=== PATIENT | female | born 1980 | race Caucasian/White ===

== ENCOUNTER 2016-06-10 18:15 | Inpatient (IN) ==
--- NOTE | 2016-06-10 18:28 | Emergency Department Note ---
Disposition Clinical Impression: Abdominal pain, Abnormal urinalysis, Pelvic mass in female Disposition: Still a Patient Condition: Fair Referrals: Gentry Sandoval MD [Primary Care Provider] - Forms: Work/School Release, ED Satisfaction Letter General Adult HPI - General Chief complaint: ED Abdominal Pain Stated complaint: abd, back pain Time Seen by Provider: 06/10/16 18:27 Source: patient Limitations: no limitations - History of Present Illness HPI Narrative: 34-year-old female reports to the emergency department complaining of lower abdominal pain which has been present since Sunday and getting progressively worse. The patient denies vaginal discharge bleeding or urinary symptoms. There is no history of trauma. No back pain. No chest pain or shortness of breath. There is no history of cough runny nose or pain or sore throat. The patient has never had abdominal surgery. She has no history of kidney stones. There is no history of fever or rash. The patient has had some emesis without diarrhea. No blood in the emesis. There is no history of fever. She recently traveled from [place]. She states the pain started when she was there, she was able to drive home, now the pain is getting worse. Onset (ago): day(s) Pain Scale: 10 - Related Data Allergies Allergy/AdvReac Type Severity Reaction Status Date / Time cephalexin [From Keflex] Allergy Nausea Verified 06/10/16 18:20 All systems ED: reviewed and negative except as stated. Past Medical History - Past Medical History Medical history: Reports: no medical history Psychiatric history: Reports: anxiety, depression, PTSD - Social History Smoking Status: Current every day smoker Alcohol use: Reports: none Drug use: Reports: none Physical Exam - General Limitations: no limitations General appearance: alert, in no apparent distress - Head Head exam: atraumatic, normocephalic, normal inspection - Eye Eye exam: Present: normal appearance, PERRL, EOMI - ENT ENT exam: normal exam, normal oropharynx, mucous membranes moist, TM's normal bilaterally, normal external ear exam - Neck Neck exam: Present: normal inspection, full ROM, trachea midline - Chest Chest inspection: Present: symmetric chest wall rise. Absent: tenderness - Respiratory Respiratory exam: Present: normal lung sounds bilaterally. Absent: respiratory distress - Cardiovascular Cardiovascular exam: Present: regular rate, normal rhythm, normal heart sounds - Abdominal Exam Abdominal exam: Present: soft, tenderness, normal bowel sounds. Absent: distention, guarding, rebound, rigidity, trauma Abdominal tenderness: Present: RLQ, LLQ, moderate - Extremities Exam Extremities exam: Present: normal inspection, full ROM, normal capillary refill. Absent: tenderness, pedal edema, joint swelling, calf tenderness - Expanded Lower Extremity Exam Lower leg exam: Absent: Homans' sign Neurovascular/Tendon exam: Absent: motor deficit, sensory deficit, tendon deficit - Back Exam Back exam: Present: normal inspection, full ROM. Absent: tenderness, CVA tenderness (R), CVA tenderness (L), vertebral tenderness - Neurological Exam Neurological exam: Present: alert, oriented X3, CN II-XII intact. Absent: motor sensory deficit - Psychiatric Psychiatric exam: Present: normal affect, normal mood - Skin Skin exam: Present: warm, dry, intact, normal color. Absent: rash, cyanosis, diaphoresis, erythema, pallor, mottled Course Vital Signs Temperature 97.6 F 06/10/16 18:17 Pulse Rate 88 06/10/16 18:17 Respiratory Rate 20 06/10/16 18:17 Blood Pressure 143/105 06/10/16 18:17 O2 Sat by Pulse Oximetry 99 06/10/16 18:17 Temperature 97.6 F 06/10/16 18:17 Pulse Rate 88 06/10/16 18:17 Respiratory Rate 20 06/10/16 18:17 Blood Pressure 143/105 06/10/16 18:17 O2 Sat by Pulse Oximetry 99 06/10/16 18:17 Oxygen Delivery Oxygen Delivery Room Air Medical Decision Making - [facility] Narrative Medical decision making narrative: The patient appears to have a complex pelvic mass which may be related to the appendix. Based on her significant CT findings in association with progressive abdominal pain I have consulted Dr. Mirza neon tube bender u.s. commissioner who is coming to the emergency department to evaluate the patient. The patient is currently stable pending obstetric evaluation and disposition. I suspect she will require hospitalization secondary to progressive and severe pain, with possible surgical management. It is shift change, I have checked the patient out to Dr. Perez who ordered name with Dr. Mirza and assist wth disposition. - Lab Data Lab results reviewed: Yes I reviewed the patient's lab results. Result diagrams: 06/10/16 18:44 06/10/16 18:44 Lab Results 06/10/16 06/10/16 06/10/16 Range/Units 18:44 18:44 18:44 WBC 14.2 H (4.3-11.1) K/mcL RBC 4.35 (3.82-4.97) M/mcL Hgb 13.2 (11.5-15.4) g/dL Hct 38.9 (35.3-44.9) % MCV 89.4 (83.0-100.0) fL MCH 30.3 (28.0-33.3) pg MCHC 33.9 (31.6-35.5) g/dL RDW 12.4 (11.5-14.5) % Plt Count 376 (140-400) K/mcL MPV 9.5 (9.4-12.4) fL Immature Gran % 0.5 (0-4) % Seg Neutrophils % 67.8 % Lymphocytes % 21.0 % Monocytes % 8.5 % Eosinophils % 1.7 % Basophils % 0.5 % Neutrophils # 9.6 H (1.6-8.9) K/mcL Lymphocytes # 3.0 (0.6-4.6) K/mcL Monocytes # 1.2 (0.0-1.3) K/mcL Eosinophils # 0.2 (0.0-0.6) K/mcL Basophils # 0.1 (0.0-0.2) K/mcL Sodium 138 (136-145) mEq/L Potassium 3.8 (3.5-4.5) mEq/L Chloride 107 (98-109) mEq/L Carbon Dioxide 20 (19-29) mEq/L BUN 15 (7-20) mg/dL Creatinine 0.81 (0.57-1.11) mg/dL Est GFR ( Amer) > 60 (> 60) Est GFR (Non-Af Amer) > 60 (> 60) BUN/Creatinine Ratio 19 (6-26) Glucose 131 H (70-99) mg/dL Calculated Osmolality 289 (280-300) Lactic Acid 1.4 (0.5-2.2) mmol/L Calcium 9.1 (8.6-10.8) mg/dL Total Bilirubin 0.4 (0.2-1.2) mg/dL Direct Bilirubin 0.1 (0.0-0.5) mg/dL Indirect Bilirubin 0.3 (0.0-1.2) mg/dL AST 14 (5-34) Units/L ALT 17 (0-55) Units/L Alkaline Phosphatase 35 L (38-126) Units/L C-Reactive Protein (Less than 5) mg/L Serum Total Protein 7.2 (6.0-8.3) g/dL Albumin 3.7 (3.5-5.0) g/dL Globulin 3.5 (2.4-3.5) g/dL Albumin/Globulin Ratio 1.1 (1.1-2.2) Lipase 21 (8-78) Units/L Serum , Qual (Negative) Urine Color (Yellow) Urine Clarity (Clear) Urine pH (5.0-8.0) pH Units Ur Specific [place] (1.010-1.025) Urine Protein (Neg-Trace) mg/dL Urine Glucose (UA) (Normal) mg/dL Urine Ketones (Negative) mg/dL Urine Blood (Negative) Urine Nitrite (Negative) Urine Bilirubin (Negative) Urine Urobilinogen (Normal) mg/dL Ur Leukocyte Esterase (Negative) Urine Microscopic RBC (0-3) per hpf Urine Microscopic WBC (0-3) per hpf Ur Squamous Epith Cells (None-Few) per lpf Uric Acid Crystals Urine Bacteria (None-Few) per hpf Hyaline Casts (None-Few) per lpf Urine Yeast (None Seen) per hpf Ur Culture Indicated? (NO) Urine Opiates Screen (Andsvg=598) ng/mL Ur Barbiturates Screen (Ekdmjw=555) ng/mL Ur Phencyclidine Scrn (Cutoff=25) ng/mL Ur Amphetamines Screen (Ntxwgu=3089) ng/mL U Benzodiazepines Scrn (Ifrmrc=502) ng/mL Urine Cocaine Screen (Cutoff= 300) ng/mL U Marijuana (THC) Screen (Cutoff = 50) ng/mL 06/10/16 06/10/16 06/10/16 Range/Units 18:44 18:44 19:00 WBC (4.3-11.1) K/mcL RBC (3.82-4.97) M/mcL Hgb (11.5-15.4) g/dL Hct (35.3-44.9) % MCV (83.0-100.0) fL MCH (28.0-33.3) pg MCHC (31.6-35.5) g/dL RDW (11.5-14.5) % Plt Count (140-400) K/mcL MPV (9.4-12.4) fL Immature Gran % (0-4) % Seg Neutrophils % % Lymphocytes % % Monocytes % % Eosinophils % % Basophils % % Neutrophils # (1.6-8.9) K/mcL Lymphocytes # (0.6-4.6) K/mcL Monocytes # (0.0-1.3) K/mcL Eosinophils # (0.0-0.6) K/mcL Basophils # (0.0-0.2) K/mcL Sodium (136-145) mEq/L Potassium (3.5-4.5) mEq/L Chloride (98-109) mEq/L Carbon Dioxide (19-29) mEq/L BUN (7-20) mg/dL Creatinine (0.57-1.11) mg/dL Est GFR ( Amer) (> 60) Est GFR (Non-Af Amer) (> 60) BUN/Creatinine Ratio (6-26) Glucose (70-99) mg/dL Calculated Osmolality (280-300) Lactic Acid (0.5-2.2) mmol/L Calcium (8.6-10.8) mg/dL Total Bilirubin (0.2-1.2) mg/dL Direct Bilirubin (0.0-0.5) mg/dL Indirect Bilirubin (0.0-1.2) mg/dL AST (5-34) Units/L ALT (0-55) Units/L Alkaline Phosphatase (38-126) Units/L C-Reactive Protein 5 H (Less than 5) mg/L Serum Total Protein (6.0-8.3) g/dL Albumin (3.5-5.0) g/dL Globulin (2.4-3.5) g/dL Albumin/Globulin Ratio (1.1-2.2) Lipase (8-78) Units/L Serum , Qual Negative (Negative) Urine Color Yellow (Yellow) Urine Clarity Clear (Clear) Urine pH 6.0 (5.0-8.0) pH Units Ur Specific [place] 1.025 (1.010-1.025) Urine Protein Trace (Neg-Trace) mg/dL Urine Glucose (UA) Normal (Normal) mg/dL Urine Ketones Negative (Negative) mg/dL Urine Blood Moderate H (Negative) Urine Nitrite Negative (Negative) Urine Bilirubin Negative (Negative) Urine Urobilinogen Normal (Normal) mg/dL Ur Leukocyte Esterase Negative (Negative) Urine Microscopic RBC 5-15 H (0-3) per hpf Urine Microscopic WBC 0-3 (0-3) per hpf Ur Squamous Epith Cells Moderate H (None-Few) per lpf Uric Acid Crystals Present Urine Bacteria Few (None-Few) per hpf Hyaline Casts None Seen (None-Few) per lpf Urine Yeast Few H (None Seen) per hpf Ur Culture Indicated? NO (NO) Urine Opiates Screen (Wskvcz=511) ng/mL Ur Barbiturates Screen (Veghfn=951) ng/mL Ur Phencyclidine Scrn (Cutoff=25) ng/mL Ur Amphetamines Screen (Fmjoyg=0705) ng/mL U Benzodiazepines Scrn (Vwojwr=634) ng/mL Urine Cocaine Screen (Cutoff= 300) ng/mL U Marijuana (THC) Screen (Cutoff = 50) ng/mL 06/10/16 Range/Units 19:00 WBC (4.3-11.1) K/mcL RBC (3.82-4.97) M/mcL Hgb (11.5-15.4) g/dL Hct (35.3-44.9) % MCV (83.0-100.0) fL MCH (28.0-33.3) pg MCHC (31.6-35.5) g/dL RDW (11.5-14.5) % Plt Count (140-400) K/mcL MPV (9.4-12.4) fL Immature Gran % (0-4) % Seg Neutrophils % % Lymphocytes % % Monocytes % % Eosinophils % % Basophils % % Neutrophils # (1.6-8.9) K/mcL Lymphocytes # (0.6-4.6) K/mcL Monocytes # (0.0-1.3) K/mcL Eosinophils # (0.0-0.6) K/mcL Basophils # (0.0-0.2) K/mcL Sodium (136-145) mEq/L Potassium (3.5-4.5) mEq/L Chloride (98-109) mEq/L Carbon Dioxide (19-29) mEq/L BUN (7-20) mg/dL Creatinine (0.57-1.11) mg/dL Est GFR ( Amer) (> 60) Est GFR (Non-Af Amer) (> 60) BUN/Creatinine Ratio (6-26) Glucose (70-99) mg/dL Calculated Osmolality (280-300) Lactic Acid (0.5-2.2) mmol/L Calcium (8.6-10.8) mg/dL Total Bilirubin (0.2-1.2) mg/dL Direct Bilirubin (0.0-0.5) mg/dL Indirect Bilirubin (0.0-1.2) mg/dL AST (5-34) Units/L ALT (0-55) Units/L Alkaline Phosphatase (38-126) Units/L C-Reactive Protein (Less than 5) mg/L Serum Total Protein (6.0-8.3) g/dL Albumin (3.5-5.0) g/dL Globulin (2.4-3.5) g/dL Albumin/Globulin Ratio (1.1-2.2) Lipase (8-78) Units/L Serum , Qual (Negative) Urine Color (Yellow) Urine Clarity (Clear) Urine pH (5.0-8.0) pH Units Ur Specific [place] (1.010-1.025) Urine Protein (Neg-Trace) mg/dL Urine Glucose (UA) (Normal) mg/dL Urine Ketones (Negative) mg/dL Urine Blood (Negative) Urine Nitrite (Negative) Urine Bilirubin (Negative) Urine Urobilinogen (Normal) mg/dL Ur Leukocyte Esterase (Negative) Urine Microscopic RBC (0-3) per hpf Urine Microscopic WBC (0-3) per hpf Ur Squamous Epith Cells (None-Few) per lpf Uric Acid Crystals Urine Bacteria (None-Few) per hpf Hyaline Casts (None-Few) per lpf Urine Yeast (None Seen) per hpf Ur Culture Indicated? (NO) Urine Opiates Screen Negative (Tkmdty=880) ng/mL Ur Barbiturates Screen Negative (Jnxnrj=591) ng/mL Ur Phencyclidine Scrn Negative (Cutoff=25) ng/mL Ur Amphetamines Screen Negative (Iblycp=5045) ng/mL U Benzodiazepines Scrn Negative (Lclmak=792) ng/mL Urine Cocaine Screen Negative (Cutoff= 300) ng/mL U Marijuana (THC) Screen Negative (Cutoff = 50) ng/mL - Radiology Data Radiology results reviewed: Yes I reviewed the patient's radiology results.
[2016-06-10] MEDS ORDERED: 0.9 % Sodium Chloride 1,000 ML IVC ONE (18:36)
[2016-06-10 18:51] LABS: Basophils # 0.1 K/mcL (0.0-0.2); Basophils % 0.5 %; Eosinophils # 0.2 K/mcL (0.0-0.6); Eosinophils % 1.7 %; Hematocrit 38.9 % (35.3-44.9); Hemoglobin 13.2 g/dL (11.5-15.4); Immature Granulocytes % 0.5 % (0-4); Mean Corpuscular HGB Conc 33.9 g/dL (31.6-35.5); Mean Corpuscular Hemoglobin 30.3 pg (28.0-33.3); Mean Corpuscular Volume 89.4 fL (83.0-100.0); Mean Platelet Volume 9.5 fL (9.4-12.4); Monocytes # 1.2 K/mcL (0.0-1.3); Monocytes % 8.5 %; Neutrophils # 9.6 K/mcL (1.6-8.9); Platelet Count 376 K/mcL (140-400); Red Blood Count 4.35 M/mcL (3.82-4.97); Red Cell Distribution Width 12.4 % (11.5-14.5); Segmented Neutrophils % 67.8 %
[2016-06-10 19:06] LABS: Bilirubin,Urine Negative (Negative); Blood,Urine Moderate (Negative); Clarity,Urine Clear (Clear); Color,Urine Yellow (Yellow); Glucose,Urine (UA) Normal (Normal); Ketones,Urine Negative (Negative); Leukocyte Esterase,Urine Negative (Negative); Nitrite,Urine Negative (Negative); Protein,Urine Trace mg/dL (Neg-Trace); Specific Gravity,Urine 1.025 (1.010-1.025); Urobilinogen,Urine Normal (Normal)
[2016-06-10 19:08] LABS: Alanine Aminotransferase 17 Units/L (0-55); Albumin 3.7 g/dL (3.5-5.0); Albumin/Globulin Ratio 1.1 (1.1-2.2); Alkaline Phosphatase 35 Units/L (38-126); Aspartate Amino Transferase 14 Units/L (5-34); BUN/Creatinine Ratio 19 (6-26); Bilirubin,Direct 0.1 mg/dL (0.0-0.5); Bilirubin,Indirect 0.3 mg/dL (0.0-1.2); Bilirubin,Total 0.4 mg/dL (0.2-1.2); Blood Urea Nitrogen 15 mg/dL (7-20); Calcium 9.1 mg/dL (8.6-10.8); Carbon Dioxide 20 mEq/L (19-29); Chloride 107 mEq/L (98-109); Globulin 3.5 g/dL (2.4-3.5); Glucose 131 mg/dL (70-99); Lipase 21 Units/L (8-78); Osmolality,Calculated 289 (280-300); Potassium 3.8 mEq/L (3.5-4.5); Sodium 138 mEq/L (136-145); Total Protein 7.2 g/dL (6.0-8.3); eGFR For African Americans > 60 (> 60); eGFR For Non-African Americans > 60 (> 60)
[2016-06-10 19:12] LABS: Amphetamine Screen,Urine Negative ng/mL (Cutoff=1000); Barbiturate Screen,Urine Negative ng/mL (Cutoff=200); Benzodiazepines Screen,Urine Negative ng/mL (Cutoff=200); Cannabinoid Screen,Urine Negative ng/mL (Cutoff = 50); Cocaine Screen,Urine Negative ng/mL (Cutoff= 300); Opiate Screen,Urine Negative ng/mL (Cutoff=300); Phencyclidine Screen,Urine Negative ng/mL (Cutoff=25)
[2016-06-10 19:21] LABS: Squamous Epithelial Cell,Urine Moderate per lpf (None-Few); Uric Acid Crystals,Urine Present; WBC,Urine 0-3 per hpf (0-3)
[2016-06-10 19:23] LABS: Bacteria,Urine Few per hpf (None-Few); Hyaline Casts,Urine None Seen per lpf (None-Few); Yeast,Urine Few per hpf (None Seen)
[2016-06-10] MEDS ORDERED: *HR* HYDROmorphone (PF) 1 MG/ML SYRINGE IVP ONE (20:19)
[2016-06-10] MEDS ORDERED: Ondansetron 4 MG/2 ML VIAL IVP ONE (20:20)
[2016-06-10] MEDS ORDERED: Lidocaine -MPF 2% 2 ML VIAL ONE ×2 (23:48→23:49)
[2016-06-10] MEDS ORDERED: *HR* Succinylcholine 200 MG/10 ML VIAL IVP ONE (23:48)
[2016-06-10] MEDS ORDERED: *HR* FentaNYL (PF) 100 MCG/2 ML VIAL ONE (23:48)
[2016-06-10] MEDS ORDERED: *HR* Midazolam HCl 2 MG/2 ML VIAL ONE (23:48)
[2016-06-10] MEDS ORDERED: *HR* Propofol 200 MG/20 ML VIAL IVP ONE (23:48)
[2016-06-10] MEDS ORDERED: Lidocaine -MPF 4% 5 ML AMPUL ONE (23:48)
[2016-06-10] MEDS ORDERED: *HR* Rocuronium Bromide 50 MG/5 ML VIAL ONE (23:48)
[2016-06-10] MEDS ORDERED: Metoclopramide 10 MG/2 ML VIAL ONE (23:57)
[2016-06-11] MEDS ORDERED: Ringers Solution, Lactated 1,000 ML ONE (00:15)
[2016-06-11] MEDS ORDERED: Albuterol 2.5 MG/3 ML NEBULIZER ONE (00:19)
[2016-06-11] MEDS: Ringers Solution, Lactated 1,000 ML IVC SCH ×4 (00:20→15:48)
--- NOTE | 2016-06-11 01:00 | Anesthesia Evaluation PreOp ---
Date of Encounter: 06/11/16 Time of Encounter: 00:58 - Past History Planned Operation: Expl Lap/L-oophorectomy/removal R-adnexal mass Cardiac History: Denies any Significant Hx Pulmonary History: Smoker SAS ANALYST History: Other (Anxiety/Depresson/PTSD maintained on Xanax & Lexapro) Other Medical History: Denies Any Significant HX Anesthesia History: No Prior Anesthetic Complications, Past Anesthesia : No Test: Negative Alcohol Use: none Drug use: none Medications and Allergies Alprazolam [Xanax 0.5 MG Tablet] 0.5 mg PO BID 06/10/16 [History] Escitalopram [Lexapro] 20 mg PO DAILY 06/10/16 [History] Norethindrone-E.estradiol-Iron [Microgestin Fe 1-20 Tablet] 1 each PO DAILY [History] Allergies cephalexin [From Keflex] Allergy (Verified 06/10/16 18:20) Nausea - Meds/Allergy Pre-op Review Medications Reviewed: Yes Allergies Reviewed: Yes Beta Blockers on Current Med List: No Anesthesia Results - Labs 06/10/16 18:44 06/10/16 18:44 Laboratory Results Impressions Abdomen/Pelvis CT 06/10/16 18:35 IMPRESSION: 1. 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 This measures 12.7 x 14.7 x 14.4 cm. 2. Abnormal tubular cystic mass containing coarse calcifications along the right pelvic side wall. This could represent a portion of the above-mentioned teratoma however it does appear separate and may represent a right-sided teratoma or hydrosalpinx. This abuts the distal tip of the appendix and could also represent a mucocele arising from the distal tip of the appendix. This abnormality measures 6.5 x 2.8 cm. RECOMMENDATIONS: Surgical consultation is recommended. D/ / 06/10/2016 19:47:28 Jayjay Paulino MD / jamie Interpreting Provider: Jayjay Paulino MD Chest X-Ray 06/10/16 18:35 IMPRESSION: Negative chest. D/ / Buddy Carranza MD / Buddy Carranza MD Interpreting Provider: Buddy Carranza MD Anesthesia Exam Vital Signs/O2 Sat/Glucose, Most Current Temp Pulse Resp BP Pulse Ox 06/10/16 23:38 16 06/10/16 23:35 97.6 F 62 16 153/82 98 06/10/16 23:10 15 146/98 06/10/16 22:50 72 15 146/98 96 06/10/16 22:20 73 16 124/74 97 06/10/16 21:50 73 16 123/80 98 Height: 5'3" Weight: 225# NPO (# of Hours): >12hrs - HEENT Pupil (Motor): Pupils equal, EOMI Mallampati: III Teeth: Normal Oral Opening: Greater than 3 - SAS ANALYST LOC: Oriented SAS ANALYST Motor: Normal RUE, Normal LUE, Normal RLE, Normal LLE, Normal Face SAS ANALYST Sensory: Normal: RUE, LUE, RLE, LLE, Face - Cardiac Rhythm: Regular Murmur: None - Pulmonary Breath Sounds: bilateral Clear Respiratory Effort: Symmetrical Anesthesia Assess/Plan ASA Score: 3 (MO, Smoker, Anxiety/PTSD) Modified [place] Scale for Level of Consciousness: Cooperative, oriented, and tranquil Anesthetic Plan: General Monitoring Plan: Standard Monitors Recovery Plan: PACU Anes Supervising Prov Stmt: PT seen/evaluated, R&B Discussed, questions answered and consent obtained. Ynes Spaulding MD
--- NOTE | 2016-06-11 01:06 | OB/GYN History & Physical ---
Date of Encounter: 06/11/16 Time of Encounter: 01:03 Assessment and Plan (1) Abdominal pain Current visit: Yes Status: Acute Qualifiers: Abdominal location: lower abdomen, unspecified Qualified Code(s): R10.30 - Lower abdominal pain, unspecified (2) Pelvic mass in female Current visit: Yes Status: Acute Patient presents to the ER with pain and left lower quadrant is worsening this evening. CAT scan reveals 17 cm dermoid cyst and left probable hydrosalpinx on the right. He is quite debilitating pain and desires definitive surgical management. She is whereby operative risks and signed appropriate consent for exploratory laparotomy removal of left ovarian dermoid cyst and right pelvic mass. All questions were answered and consent is obtained. History of Present Illness Chief complaint: Pelvic pain HPI: Ms. Zafar is a 36 year old female 0 with last menstrual period which was normal earlier this month. She had onset of pain 3 days prior to arrival is dull aching pain until this evening escalated and was doubly over an excruciating. She did have associated chills as well as nausea. She has no history of similar pain. she has no bowel or bladder complaints. She denies abnormal vaginal discharge. She has no history of gynecologic problems no history of sexually transmitted diseases. Arrival showed a slightly elevated white count of 14 she appeared to be in quite severe pain and CAT scan showed 12.7 x 14.7 x 14.4 dermoid cyst in the left adnexa. In the right adnexa was 6.5 x 2.8 cm tubular structure. I did discuss this with the radiologist who read the CAT scan he believed it most likely to be a portion of the dermoid versus hydrosalpinx. After discussing with patient options she desired to proceed with laparotomy. Past Med Surg Social Fam HX - Past Medical History Source: patient Medical history: no medical history Psychiatric history: anxiety, depression, PTSD - Social History Smoking Status: Current every day smoker Alcohol use: none Drug use: none Obstetrical History - Pregnancies : 0 Medications and Allergies Alprazolam [Xanax 0.5 MG Tablet] 0.5 mg PO BID 06/10/16 [History] Escitalopram [Lexapro] 20 mg PO DAILY 06/10/16 [History] Norethindrone-E.estradiol-Iron [Microgestin Fe 1-20 Tablet] 1 each PO DAILY [History] Allergies cephalexin [From Keflex] Allergy (Verified 06/10/16 18:20) Nausea Exam - Vital Signs Vital signs: Initial Vital Signs Temp Pulse Resp BP Pulse Ox 97.6 F 88 20 143/105 99 06/10/16 18:17 06/10/16 18:17 06/10/16 18:17 06/10/16 18:17 06/10/16 18:17 - Constitutional Constitutional: well developed, moderate distress - HEENT HEENT: EOMI, PERRL - Neck Neck exam: full ROM - Lungs Respiratory exam: CTAB - Cardiovascular Cardiovascular exam: RRR - Abdomen Abdomen: Present: guarding noted Abdomen detail: right lower quadrant: tenderness, left lower quadrant: mass, tenderness - Extremities Extremities exam: full ROM - Adnexa Adnexa: left: mass Results Result Diagrams: 06/10/16 18:44 06/10/16 18:44 Abnormal lab results WBC 14.2 K/mcL (4.3-11.1) H 06/10/16 18:44 Neutrophils # 9.6 K/mcL (1.6-8.9) H 06/10/16 18:44 Glucose 131 mg/dL (70-99) H 06/10/16 18:44 Alkaline Phosphatase 35 Units/L (38-126) L 06/10/16 18:44 C-Reactive Protein 5 mg/L (Less than 5) H 06/10/16 18:44 Urine Blood Moderate (Negative) H 06/10/16 19:00 Urine Microscopic RBC 5-15 per hpf (0-3) H 06/10/16 19:00 Ur Squamous Epith Cells Moderate per lpf (None-Few) H 06/10/16 19:00 Urine Yeast Few per hpf (None Seen) H 06/10/16 19:00 All other labs normal.
[2016-06-11] MEDS ORDERED: Albuterol 2.5 MG/3 ML NEBULIZER IH ONE (01:09)
[2016-06-11] MEDS ORDERED: Metoclopramide 10 MG/2 ML VIAL ONE (01:15)
[2016-06-11] MEDS ORDERED: Famotidine 20 MG/2 ML VIAL ONE (01:16)
[2016-06-11] MEDS ORDERED: Acetaminophen IV 1,000 MG/100 ML INFUS..BTL ONE (01:16)
[2016-06-11] MEDS ORDERED: Famotidine 20 MG/2 ML VIAL IVP ONE (01:28)
[2016-06-11] MEDS ORDERED: Metoclopramide 10 MG/2 ML VIAL IVP ONE (01:28)
[2016-06-11] MEDS ORDERED: Clindamycin 900 MG/50 ML 900 MG/50 ML IV.SOLN IVPB ONE (01:48)
[2016-06-11] MEDS ORDERED: *HR* Magnesium Sulfate 1 GM/2 ML VIAL ONE (02:31)
[2016-06-11] MEDS ORDERED: Ondansetron 4 MG/2 ML VIAL ONE (02:34)
[2016-06-11] MEDS ORDERED: Dexamethasone 4 MG/ML VIAL ONE (02:34)
[2016-06-11] MEDS ORDERED: Neostigmine Methylsulfate 3 MG/3 ML SYRINGE ONE (03:28)
[2016-06-11] MEDS ORDERED: *HR* HYDROmorphone 2 MG/ML SYRINGE ONE (03:37)
--- NOTE | 2016-06-11 03:37 | Operative Note ---
Date of procedure: 06/11/16 Pre-op diagnosis: right adenexal mass Post-op diagnosis: other (appendiceal torsion) Procedure: open appendectomy Complications: none immediate Anesthesia: YAA Surgeon: Mariella Lees Rounding And Backing Machine Operator: Mathew Warren Estimated blood loss (cc): 2 Specimen: appendix Condition: stable Disposition: PACU Procedure in Detail: I was called as an intraoperative consult from Dr. Warren. He had taken the patient to the operating room for a large dermoid cyst and right adnexal mass. He states that once in the abdomen what was thought to be a right adnexal mass was really a ischemic torsed appendix. He detorsed the appendix and called me into the operating suite. The appendix was severely dilated but no longer ischemic. A right angle was used to dissect in the nasal appendix isolating out the appendiceal artery which was ligated with an 0 silk stitch. The appendix was transected at the base of the cecum with a linear JUDY-75 stapler using a blue load. The appendix to the back table. The staple line was evaluated and was intact. The appendiceal artery stump was then grasped with a right angle and a second 0 silk ligating stitch placed. There was no bleeding either from the appendiceal artery or the staple line. The case was turned back over to Dr. Warren
--- NOTE | 2016-06-11 04:40 | OB/GYN Procedure Note ---
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 Lees Surgeon: Mathew Warren (c/s Nabeel) Anesthesia Type: General Estimated blood loss (cc): 30 Fluids: crystalloid Procedure Complications: None Specimens collected: left ovary and partial tube, appendix Disposition: PACU Findings: Enlarged smooth walled left ovarian cyst with straw colored thin fluid , Torsed enlarged appendix with discoloration c/w lack of oxygenation. Narrative: Patient is a 36-year-old female presented to the emergency room this afternoon complaining of worsening abdominal pain that was not doubling her over. She had had some recent onset of nausea and had felt hot at times been no documented fever and no emesis. She had a minimally elevated white count and no fever. CAT scan was performed showing 17 cm dermoid cyst on left and 2.5 x 6 cm cystic structure on the right that appeared to be separate from the appendix. Discussed with patient options decision was made to proceed with exploratory laparotomy with left oophrectomy and removal of right adnexal mass. Patient was aware operative risks and signed appropriate consent. Description of procedure: Patient was taken operating room where general anesthesia was administered. She was prepped and draped in usual sterile fashion in supine position bladder was drained of clear urine with Coronel catheter. Scalpel was used to make pain still skin incision was sharply taken down to the rectus fascia. Fascia was incised in midline and fascial incision was extended bilaterally. Rectus muscles were divided and peritoneum was entered sharply. There is no evidence of ascites and the left ovary was noted to be quite smooth wall and very much enlarged. It was able to find the infundibulopelvic ligament this was crossclamped with the LigaSure and then cauterized and transected. It was a small omental adhesion to the enlarged ovary and this too was taken to. This point attempt was made to remove the ovary from the pelvis removing the ovary did have some leaking of straw-colored fluid this was quickly suctioned and the ovary was removed from the field and once removed irrigation was performed and hemostasis was assured. This point we were able to palpate the uterus and normal right ovary and right fallopian tube. There was a large smooth-walled structure was somewhat blue inflamed in appearance. This was found to be the appendix. At this point Dr. Lees was consulted to quickly responded and performed appendectomy. Again irrigation was performed and hemostasis was assured. Fascia was closed with oh loop PDS from each side. Irrigation was performed the deep subcutaneous tissue was reapproximated with 3-0 Vicryl. Skin edges were then reapproximated with maribell. All sponge and instruments counts correct patient taken recovery room good condition.
--- NOTE | 2016-06-11 05:01 | Anesthesia Evaluation Post Op ---
Date of Encounter: 06/11/16 Time of Encounter: 04:59 - Vital Signs Vital Signs: Vital Signs/O2 Sat/Glucose, Most Current Temp Pulse Resp BP Pulse Ox 06/11/16 04:45 99.1 F 89 16 127/82 99 06/11/16 04:35 80 16 126/79 97 06/11/16 04:25 79 16 129/82 96 06/11/16 04:15 99.2 F 95 16 132/76 99 - Lungs Lungs: Clear Ascult./Percussion - Airway Airway: Non-obstructed - Cardiovascular Regular Rate - Mental Status Mental Status: Asleep with brisk response to light stimulation - Pain Pain Scale: 1 Pain Scale used: Numeric (1 - 10) - Nausea Vomiting Nausea Vomiting: Not Present - Hydration Hydration: Ice chips, Coronel catheter - Discharge PostOp Status: Transfer Patient to floor Anes Supervising Prov Stmt: Pt seen/evaluated, VSS and pt has met criteria for discharge to home.- MD Chelly
[2016-06-11] MEDS ORDERED: Naloxone 0.4 MG/ML INJ IVP PRN (05:15)
[2016-06-11] MEDS ORDERED: *HR* HYDROmorphone (PF) 1 MG/ML SYRINGE IVP PRN (05:15)
--- NOTE | 2016-06-11 08:32 | Event Note ---
Date of Encounter: 06/11/16 Time of Encounter: 08:27 Pt doing well post-op. Fair pain control at this time. Questions answered regarding surgical findings. Labs and VS were stable.
[2016-06-11] MEDS: *HR* OxyCODONE/APAP 5/325 TABLET PO PRN ×3 (08:50→21:24)
[2016-06-11] MEDS ORDERED: ALPRAZolam 0.5 MG TABLET PO SCH (09:00)
[2016-06-11] MEDS ORDERED: MICROGESTIN FE PO SCH (09:00)
[2016-06-11 10:05] LABS: Basophils % 0.2 %; Hematocrit 37.8 % (35.3-44.9); Hemoglobin 12.8 g/dL (11.5-15.4); Immature Granulocytes % 0.4 % (0-4); Lymphocytes % 5.1 %; Mean Corpuscular HGB Conc 33.9 g/dL (31.6-35.5); Mean Corpuscular Hemoglobin 30.2 pg (28.0-33.3); Mean Corpuscular Volume 89.2 fL (83.0-100.0); Mean Platelet Volume 9.5 fL (9.4-12.4); Monocytes # 0.6 K/mcL (0.0-1.3); Monocytes % 2.9 %; Neutrophils # 17.7 K/mcL (1.6-8.9); Platelet Count 368 K/mcL (140-400); Red Blood Count 4.24 M/mcL (3.82-4.97); Red Cell Distribution Width 12.5 % (11.5-14.5); Segmented Neutrophils % 91.4 %
--- NOTE | 2016-06-11 13:36 | General Surgery Progress Note ---
Date of Encounter: 06/11/16 Time of Encounter: 13:32 - Assessment and Plan (1) S/P laparoscopic appendectomy Current Visit: Yes Status: Acute patient pain is primarily controlled no changes from a general surgery standpoint pt tolerating diet she needs to get out of bed and ambulate discussed with her following up with both Dr Warren and myself or just with Dr Warren and follow up with me if issues or concerning pathology from the appendix, she would like to only follow up with dr Warren general surgery will sign off at this time, please call if needed (2) Leukocytosis Current Visit: Yes Status: Acute likely secondary to surgery, recheck in am Qualifiers: Leukocytosis type: unspecified Qualified Code(s): D72.829 - Elevated white blood cell count, unspecified Subjective Patient reports: no new complaints, still having pain, tolerating a regular diet , afebrile Objective Vital Signs - Last 8 Hours Temp Pulse Resp BP Pulse Ox 06/11/16 12:00 98.3 F 89 18 129/81 95 06/11/16 09:00 97.7 F 86 16 119/78 96 06/11/16 07:05 98.4 F 89 20 129/78 94 L 06/11/16 06:00 98.3 F 91 14 120/79 96 Intake and Output 06/10/16 06/11/16 06/11/16 23:59 07:59 15:59 Intake Total 1000 / 1000 1800 / 1800 250 / 250 Output Total 1175 / 1175 Balance 1000 / 1000 1800 / 1800 -925 / -925 Intake: IV Fluids 1000 / 1000 1800 / 1800 0.9 % Sodium Chloride 1, 1000 / 1000 000 ML @ 3750 mls/hr IVC .Q16M [facility] Rx#:[id number] Lactated Ringers 1,000 ML 1800 / 1800 @ 25 mls/hr IVC .Q24H [facility] Rx#:[id number] Oral 250 / 250 Output: Urine 775 / 775 Catheter 400 / 400 Other: Stool Characteristics Normal for Patient Normal for Patient Normal for Patient Weight 103.1 kg Patient Weight 06/11/16 23:59 Weight 103.1 kg - General physical appearance well developed, well nourished, no distress - Eyes PERRL, normal ocular movement - ENT normal mucosa, normocephalic - Neck Neck exam: trachea midline - Respiratory normal expansion, clear to auscultation - Cardiovascular Cardiovascular exam: Present: RRR - Incision Incision: Present: clean and dry, intact - Integumentary no rash, no growths - Neurologic CN 2-12 grossly intact - Musculoskeletal normal gait, normal posture - Psychiatric oriented to time, memory intact - Labs 06/11/16 09:55 06/10/16 18:44 - VTE Documentation of Mechanical Device: Intermittent pneumatic compression device Consult Discharge Plan - Plan Referrals: Gentry Sandoval MD [Primary Care Provider] - Mariella Lees MD [Partnered Physician] - (call if needed, otherwise ok to followup from surgical standpoint with Dr Warren)
[2016-06-11] MEDS ORDERED: ALPRAZolam 1 MG TABLET PO SCH (21:30)
[2016-06-12 06:16] LABS: Basophils % 0.2 %; Eosinophils # 0.1 K/mcL (0.0-0.6); Eosinophils % 0.9 %; Hemoglobin 11.9 g/dL (11.5-15.4); Immature Granulocytes % 0.6 % (0-4); Lymphocytes # 3.6 K/mcL (0.6-4.6); Lymphocytes % 23.8 %; Mean Corpuscular Hemoglobin 30.6 pg (28.0-33.3); Mean Platelet Volume 9.4 fL (9.4-12.4); Monocytes # 1.3 K/mcL (0.0-1.3); Monocytes % 8.6 %; Platelet Count 320 K/mcL (140-400); Red Blood Count 3.89 M/mcL (3.82-4.97); Red Cell Distribution Width 12.7 % (11.5-14.5); Segmented Neutrophils % 65.9 %
--- NOTE | 2016-06-12 07:58 | Discharge Summary ---
Outpatient Proc Discharge Plan - Plan Prescriptions: OxyCODONE/APAP 5/325 [Percocet 5/325 MG] 1 each PO Q4HR PRN #40 tablet PRN Reason: post op pain Ibuprofen [Motrin] 600 mg PO Q6HR PRN #40 tab PRN Reason: post op pain Home Medications: Alprazolam [Xanax 0.5 MG Tablet] 0.5 mg PO BID 06/10/16 [History] Escitalopram [Lexapro] 20 mg PO DAILY 06/10/16 [History] Norethindrone-E.estradiol-Iron [Microgestin Fe 1-20 Tablet] 1 each PO DAILY [History] Ibuprofen [Motrin] 600 mg PO Q6HR PRN #40 tab 06/12/16 [Rx] OxyCODONE/APAP 5/325 [Percocet 5/325 MG] 1 each PO Q4HR PRN #40 tablet 06/12/16 [Rx]
[2016-06-12] MEDS: *HR* OxyCODONE/APAP 5/325 TABLET PO PRN (08:18)
--- NOTE | 2016-06-12 08:24 | Discharge Summary ---
Date of Encounter: 06/12/16 Time of Encounter: 08:26 - Discharge Diagnosis (1) Abdominal pain Priority: Primary Status: Acute Comments: Doing much better post op Qualifiers: Abdominal location: lower abdomen, unspecified Qualified Code(s): R10.30 - Lower abdominal pain, unspecified (2) Pelvic mass in female Priority: Secondary Status: Acute Comments: Pt s/p resection of large left adnexal cyst and inflammed appendix. Doing very well, will d/c home - Discharge Medications Prescriptions: OxyCODONE/APAP 5/325 [Percocet 5/325 MG] 1 each PO Q4HR PRN #40 tablet PRN Reason: post op pain Ibuprofen [Motrin] 600 mg PO Q6HR PRN #40 tab PRN Reason: post op pain Home Medications: Alprazolam [Xanax 0.5 MG Tablet] 0.5 mg PO BID 06/10/16 [History] Escitalopram [Lexapro] 20 mg PO DAILY 06/10/16 [History] Norethindrone-E.estradiol-Iron [Microgestin Fe 1-20 Tablet] 1 each PO DAILY [History] Ibuprofen [Motrin] 600 mg PO Q6HR PRN #40 tab 06/12/16 [Rx] OxyCODONE/APAP 5/325 [Percocet 5/325 MG] 1 each PO Q4HR PRN #40 tablet 06/12/16 [Rx] Allergies/Adverse Reactions: Allergies cephalexin [From Keflex] Allergy (Verified 06/10/16 18:20) Nausea Data Procedures and tests throughout hospitalization: Laboratory Tests 06/11/16 06/12/16 09:55 06:08 WBC 19.3 H 15.1 H RBC 4.24 3.89 Hgb 12.8 11.9 Hct 37.8 35.0 L MCV 89.2 90.0 MCH 30.2 30.6 MCHC 33.9 34.0 RDW 12.5 12.7 Plt Count 368 320 MPV 9.5 9.4 Immature Gran % 0.4 0.6 Seg Neutrophils % 91.4 65.9 Lymphocytes % 5.1 23.8 Monocytes % 2.9 8.6 Eosinophils % 0.0 0.9 Basophils % 0.2 0.2 Neutrophils # 17.7 H 10.0 H Lymphocytes # 1.0 3.6 Monocytes # 0.6 1.3 Eosinophils # 0.0 0.1 Basophils # 0.0 0.0 Labs on day of discharge: Labs from last 24 hours 06/12/16 06/11/16 06:08 09:55 WBC 15.1 H 19.3 H RBC 3.89 4.24 Hgb 11.9 12.8 Hct 35.0 L 37.8 MCV 90.0 89.2 MCH 30.6 30.2 MCHC 34.0 33.9 RDW 12.7 12.5 Plt Count 320 368 MPV 9.4 9.5 Immature Gran % 0.6 0.4 Seg Neutrophils % 65.9 91.4 Lymphocytes % 23.8 5.1 Monocytes % 8.6 2.9 Eosinophils % 0.9 0.0 Basophils % 0.2 0.2 Neutrophils # 10.0 H 17.7 H Lymphocytes # 3.6 1.0 Monocytes # 1.3 0.6 Eosinophils # 0.1 0.0 Basophils # 0.0 0.0 - Impressions Doing well. Good pain control. Ambulating without difficulty. 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: Total time spent providing and/or coordinating discharge services: Exam - Constitutional Vitals: Temp Pulse Resp BP Pulse Ox 98 F 79 12 129/85 93 L 06/12/16 05:18 06/12/16 05:18 06/12/16 07:53 06/12/16 05:18 06/12/16 05:18 General appearance IM: A&O X 3 - Respiratory Respiratory exam: Present: CTAB - Cardiovascular Cardiovascular exam IM: Present: RRR - GI/Abdominal GI/Abdominal exam IM: normal bowel sounds Incision: normal, intact - Extremities Exam Extremities exam IM: Present: full ROM - Neurological Exam Neurological exam: oriented X3 - VTE Documentation of Mechanical Device: Intermittent pneumatic compression device
[2016-06-12 08:29] VITALS: BP 142/88
== END 2016-06-12 09:42 | disposition home or self-care (01) | DRG 743 ==
LOC: EMEROO 18:15 → 1NENUOBS 18:15
PROVIDERS: ADMIT Obstetrics & Gynecology; ATTEND Obstetrics & Gynecology

== ENCOUNTER 2016-08-14 11:49 | Inpatient (IN) ==
--- NOTE | 2016-08-14 12:34 | Anesthesia Evaluation PreOp ---
Date of Encounter: 08/14/16 Time of Encounter: 12:31 - Past History Planned Operation: robot/lap colon rsxn righ Cardiac History: Denies any Significant Hx Pulmonary History: Smoker, Pack/yr (8), Asthma CYBER SECURITY SYSTEMS ENGINEER History: Other (anxiety) Other Medical History: Denies Any Significant HX Anesthesia History: No Prior Anesthetic Complications, Past Anesthesia (ex lap. Left oophorectomy, appy) Alcohol Use: none Drug use: none Medications and Allergies Alprazolam [Xanax 0.5 MG Tablet] 0.5 mg PO BID 06/10/16 [History] Escitalopram [Lexapro] 20 mg PO DAILY 06/10/16 [History] Norethindrone-E.estradiol-Iron [Microgestin Fe 1-20 Tablet] 1 tab PO DAILY 06/10 [History] Ibuprofen [Motrin] 600 mg PO Q6HR PRN #40 tab 06/12/16 [Rx] Albuterol Sulfate [Proair Hfa] 2 puff IH Q4H PRN 07/04/16 [History] L. Acidophilus/Pectin, Blanco [Acidophilus Probiotic Capsule] 1 cap PO DAILY [History] Levofloxacin [Levaquin] 500 mg PO DAILY 07/04/16 [History] Minocycline HCl [Minocin] 100 mg PO Q12H 07/04/16 [History] OxyCODONE/APAP 5/325 [Percocet 5/325 MG] 1 tab PO Q4HR PRN 07/04/16 [History] Allergies cephalexin [From Keflex] Allergy (Verified 06/10/16 18:20) Nausea - Meds/Allergy Pre-op Review Medications Reviewed: Yes Allergies Reviewed: Yes Beta Blockers on Current Med List: No Anesthesia Results - Labs Laboratory Tests 08/07/16 08/07/16 15:39 15:39 Hgb 13.2 Hct 40.1 Plt Count 353 Sodium 140 Potassium 4.3 Creatinine 0.81 Anesthesia Exam O2 Sat Height 1.59 m Height 1.59 m Weight 100.698 kg Weight 100.698 kg O2 Sat by Pulse Oximetry 97 Vital Signs Temp Pulse Resp BP Pulse Ox 98.1 F 95 18 129/77 97 08/14/16 12:04 08/14/16 12:04 08/14/16 12:04 08/14/16 12:04 08/14/16 12:04 Height: 1.59 Weight: 100 NPO (# of Hours): >8 - HEENT Pupil (Motor): Pupils equal, EOMI Mallampati: II Teeth: Normal Oral Opening: Greater than 3 (good underbite) - CYBER SECURITY SYSTEMS ENGINEER LOC: Oriented [employer]BER SEC[employer]ITY SYSTEMS ENGINEER Motor: Normal RUE, Normal LUE, Normal RLE, Normal LLE, Normal Face [employer]BER SEC[employer]ITY SYSTEMS ENGINEER Sensory: Normal: RUE, LUE, RLE, LLE, Face - Cardiac Rhythm: Regular Murmur: None - Pulmonary Breath Sounds: bilateral Clear Respiratory Effort: Symmetrical Anesthesia Assess/Plan ASA Score: 3 (super mo) Modified [place] Scale for Level of Consciousness: Cooperative, oriented, and tranquil Anesthetic Plan: General Monitoring Plan: Standard Monitors Recovery Plan: PACU
[2016-08-14] MEDS ORDERED: Ringers Solution, Lactated 1,000 ML IVC SCH ×2 (12:45→18:00)
[2016-08-14] MEDS ORDERED: *HR* Propofol 200 MG/20 ML VIAL IVP ONE (12:47)
[2016-08-14] MEDS ORDERED: Ondansetron 4 MG/2 ML VIAL ONE ×2 (12:47→19:28)
[2016-08-14] MEDS ORDERED: *HR* Rocuronium Bromide 50 MG/5 ML VIAL ONE ×2 (12:47→16:39)
[2016-08-14] MEDS ORDERED: *HR* Midazolam HCl 2 MG/2 ML VIAL ONE (12:47)
[2016-08-14] MEDS ORDERED: *HR* FentaNYL (PF) 100 MCG/2 ML VIAL ONE ×2 (12:47→16:00)
[2016-08-14] MEDS ORDERED: Lidocaine -MPF 2% 2 ML VIAL ONE (12:48)
[2016-08-14] MEDS ORDERED: Albuterol 2.5 MG/3 ML NEBULIZER IH ONE (12:53)
[2016-08-14] MEDS ORDERED: Clindamycin 900 MG/50 ML 900 MG/50 ML IV.SOLN IVPB ONE ×2 (12:53→19:39)
--- NOTE | 2016-08-14 14:45 | History & Physical Report ---
Date of Encounter: 08/14/16 Time of Encounter: 14:45 24 Hour HP Update - Instructions Instructions: If the History and Physical is less than 30 days old and was completed prior to A.M. admission and or procedure and has NOT been updated on calendar day of procedure please complete this update prior to performing procedure. - Update Patient reports changes in Medical Condition: No Changes in examination, assessment, or condition: No Changes in Medication: No Surgery Remains Indicated: Yes Consent for Planned Operative Procedure(s) Verified: Yes - Pre-Operative Checklist Prophylactic Antibiotic Ordered: Yes Home Medications Include Beta Charan: No Is VTE Prophylaxis Indicated?: Yes
[2016-08-14] MEDS ORDERED: Ondansetron 4 MG/2 ML VIAL IVP ONE (17:51)
[2016-08-14] MEDS ORDERED: *HR* Promethazine 25 MG/ML VIAL IVP PRN ×2 (17:51→22:10)
[2016-08-14] MEDS ORDERED: *HR* Labetalol 100 MG/20 ML MDV IVP PRN (17:51)
[2016-08-14] MEDS ORDERED: Neostigmine Methylsulfate 3 MG/3 ML SYRINGE ONE (18:40)
[2016-08-14] MEDS ORDERED: Dexamethasone 4 MG/ML VIAL ONE (19:28)
[2016-08-14] MEDS ORDERED: *HR* HYDROmorphone 2 MG/ML SYRINGE ONE (19:32)
--- NOTE | 2016-08-14 20:09 | Operative Note ---
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 Sign-in was performed and everone was in agreement. Anesthesia was induced and patient was endotracheally intubated by anesthesia without incident. Wadsworth catheter was placed by circulating nurse. Patients arms were tucked bilaterally. The abdomen was prepped and draped in the usual sterile fashion. Time out was performed and everyone was in agreement. Incision in LUQ was made with 15 blade and veress needle was placed through this and the water drop test confirmed placement and the abdomen was insufflated. The abdomen was entered with a 5 mm 0 degree laparoscopic on a 5 mm X-tristan trocar. The area under entry was visualized and there did not appear to be any bowel injury or bleeding. A 8 mm robotic port was placed in LLQ under direct visualization after first incising skin with an 11 blade. Another 8 mm robotic port was placed in RUQ just to the right of midline, under direct visualization and first incising skin with an 11 blade. A 12 mm camera port was placed a little to left off midline infraumbilical position after first incising skin with 11 blade and placed under direct visualization. A 5 mm assist port was placed in left abdomen lateral rectus above umbilicus. Patient was placed in slight left side down trendelenberg position. The robot was docked over patients left hip. Using a Cadiere grasper and progrip the terminal ileum and cecum as well as transverse colon were identified. Patient has a hernia in the pelvis from her previous surgery and several loops of small bowel were adherent within the pelvis and in this hernia. The terminal ileum was elevated with the Cadiere and a window was made beneath the right colic vessels with the vessel sealer. Dissection was carried superiorly in the rectroperitoneal plane identify the duodenum and with gentle blunt dissection elevating the right colon mesentary up to the transverse colon away from the duodenum. The right colic vessels were ligated and transected with the vessel sealer. The area of transverse colon was chosen for transection and a window beneath and through the mesentary below the transverse colon was made gently and bluntly with the Cadiere and the vessel sealer. The transverse colon with transected with the robotic stapler. A site at the terminal ileum was chosen for transection and a mesenteric window below the small bowel was made with the vessel sealer and the TI was transected with the robotic stapler. Using the vessel sealer and opening below the cecum was made in the peritoneum and the right colon was dissected off the lateral abdominal wall rolling the colon up toward the liver. Once the colon was free it was placed over the liver. The terminal ileum and transverse colon were each grasped with laparoscopic babcocks but due the the small bowel adhesions in the pelvis the terminal ileum wouldnt reach easily. The small bowel adhesions in the pelvis hernia were taken down with sharp scissors, heated scissors and gentle blunt dissection. Once the small bowel was free the terminal ileum reached easily. A midline incision through the skin into the subcutaneous tissues was made just above the umbilicus with a 15 blade. DIssection was carried down to the anterior abdominal wall fascia with the bovie and the abdomen was entered in the midline with the bovie. The right colo specimen was brought out through the wound and placed off to the back table for pathology. A medium kesha wound retractor was placed in the wound. The terminal ileum and transverse colon were each brought out through the wound. A side by side anastomosis was constructed first with a linear JUDY 75mm stapler using a blue load and the end was closed with a TL-60. The end was lemberted with 3-0 silk stitches and a 3-0 silk crotch stitch was placed. The terminal ileum was brought out through the wound and the small bowel that was taken down out of the pelvis hernia was run. There was a small serosal tear which is not an unexpected outcome of the procedure which was closed with 3-0 silk lembert stitches. A small 3 mm hole in the small bowel was found and closed with a 3-0 silk stitch and the bowel Lemberted over the area with 3-0 silk stitches, again not an unexpected outcome given her extensive dense adhesed small bowel in the hernia. The bowel and anastomosis was returned to the abdomen and omentum was draped over the anastomosis. The midline incision was closed with two separate # 1 nonlooped PDS stitches meeting in the middle. The wound was irrigated with sterile saline, and the subcutaneous tissue was reapproximated with 3-0 vicryl interrupted stitches. The skin was closed with maribell. The 12 and 13 mm port sites were closed at the abdominal wall with 0 vicryl figure of eight stitches. All skin sites were closed with maribell. Bandaids and 4x4 gauze with medipore tape were applied to the wounds. The wadsworth remained with the patient. The ngt and ETT were removed by anesthesia. All lap and instrument counts were correct at the end of the case. The patient tolerated the procedure well and was taken to pacu in stable condition.
[2016-08-14] MEDS: *HR* HYDROmorphone (PF) 1 MG/ML SYRINGE IVP PRN ×3 (20:46→21:29)
[2016-08-14] MEDS ORDERED: Acetaminophen IV 1,000 MG/100 ML INFUS..BTL IVPB ONE (20:58)
[2016-08-14] MEDS ORDERED: Ketorolac 30 MG/ML VIAL IVP ONE (20:59)
--- NOTE | 2016-08-14 22:07 | Anesthesia Evaluation Post Op ---
Date of Encounter: 08/14/16 Time of Encounter: 22:07 - Vital Signs Vital Signs: Last Vital Signs Temp 97.6 F 08/14/16 21:20 Pulse 92 08/14/16 21:30 Resp 20 08/14/16 21:30 BP 123/69 08/14/16 21:30 Pulse Ox 95 08/14/16 21:30 - Lungs Lungs: Clear Ascult./Percussion - Airway Airway: Non-obstructed - Cardiovascular Regular Rate - Mental Status Mental Status: Alert & Oriented, Answers Appropriately - Pain Pain Scale: 5 - Nausea Vomiting Nausea Vomiting: Not Present - Hydration Hydration: NPO, Coronel catheter - Discharge PostOp Status: Transfer Patient to floor
[2016-08-14] MEDS ORDERED: *HR* Metoprolol 5 MG/5 ML VIAL IVP PRN (22:10)
[2016-08-14] MEDS ORDERED: Ondansetron 4 MG/2 ML VIAL IVP PRN (22:10)
[2016-08-14] MEDS ORDERED: Piperacillin/Tazobactam 3.375 GM in D5% in Water (Mini-Bag+) 100 ML IVPB SCH (22:10)
[2016-08-14] MEDS ORDERED: *HR* LORazepam 2 MG/ML VIAL IVP PRN (22:10)
[2016-08-14] MEDS ORDERED: Naloxone 0.4 MG/ML INJ IVP PRN (22:10)
[2016-08-14] MEDS: 0.9 % Sodium Chloride 1,000 ML IVC SCH (22:50)
[2016-08-15] MEDS: *HR* HYDROmorphone (PF) 1 MG/ML SYRINGE IVP PRN ×5 (00:12→20:46)
[2016-08-15 05:59] LABS: Basophils % 0.1 %; Hematocrit 37.2 % (35.3-44.9); Hemoglobin 12.1 g/dL (11.5-15.4); Immature Platelets 3.3 % (1.1-6.1); Lymphocytes # 1.4 K/mcL (0.6-4.6); Lymphocytes % 9.1 %; Mean Corpuscular HGB Conc 32.5 g/dL (31.6-35.5); Mean Corpuscular Hemoglobin 29.3 pg (28.0-33.3); Mean Corpuscular Volume 90.1 fL (83.0-100.0); Mean Platelet Volume 9.6 fL (9.4-12.4); Monocytes # 1.2 K/mcL (0.0-1.3); Monocytes % 7.9 %; Neutrophils # 12.2 K/mcL (1.6-8.9); Platelet Count 331 K/mcL (140-400); Red Blood Count 4.13 M/mcL (3.82-4.97); Red Cell Distribution Width 13.9 % (11.5-14.5); Segmented Neutrophils % 81.9 %
[2016-08-15] MEDS: Piperacillin/Tazobactam 3.375 GM in D5% in Water (Mini-Bag+) 100 ML IVPB SCH ×3 (06:11→23:19)
[2016-08-15] MEDS: 0.9 % Sodium Chloride 1,000 ML IVC SCH ×3 (06:12→22:15)
[2016-08-15 06:14] LABS: BUN/Creatinine Ratio 13 (6-26); Blood Urea Nitrogen 12 mg/dL (7-20); Calcium 8.8 mg/dL (8.6-10.8); Carbon Dioxide 23 mEq/L (19-29); Chloride 107 mEq/L (98-109); Glucose 131 mg/dL (70-99); Magnesium 1.7 mg/dL (1.6-2.6); Osmolality,Calculated 290 (280-300); Phosphorous 3.7 mg/dL (2.3-4.7); Potassium 4.4 mEq/L (3.5-4.5); Sodium 139 mEq/L (136-145); eGFR For African Americans > 60 (> 60); eGFR For Non-African Americans > 60 (> 60)
[2016-08-15] MEDS: Pantoprazole 40 MG VIAL IVP SCH (08:23)
--- NOTE | 2016-08-15 09:26 | General Surgery Progress Note ---
Date of Encounter: 08/15/16 Time of Encounter: 15:20 - Assessment and Plan (1) Low grade mucinous neoplasm of appendix Current Visit: Yes Status: Acute POD #1 Robotic right colectomy with Dr. Lees NPO except ice chips while awaiting return of bowel function IV fluids- 130ml/hour IV antibiotics- Zosyn Supportive care/pain control IS every 1 hour while awake D/C wadsworth catheter Out of bed to chair and ambulate hallways with assistance Repeat am labs (2) DVT prophylaxis Current Visit: Yes Status: Acute EPCDs bilateral lower extremities for DVT prophylaxis Out of bed to chair and ambulate hallways with assistance Subjective Patient reports: still having pain (post-operative), flatus (minimal), no bowel movement, afebrile Narrative: slept most of day but complains of pain with movement no nausea is thirsty has urinated after cath removed Objective Vital Signs - Last 8 Hours Temp Pulse Resp BP Pulse Ox 08/15/16 07:30 97.7 F 71 18 104/70 96 08/15/16 03:39 98.0 F 66 15 114/66 96 Intake and Output 08/14/16 08/15/16 08/15/16 23:59 07:59 15:59 Intake Total 100 / 100 1100 / 1100 Output Total 225 / 225 500 / 500 Balance -125 / -125 600 / 600 Intake: IV Fluids 100 / 100 1100 / 1100 0.9 % Sodium Chloride 1, 1000 / 1000 000 ML @ 130 mls/hr IVC . Q7H42M [facility] Rx#:[id number] Ofirmev 1,000 mg In 100 100 / 100 ml @ 400 mls/hr IVPB ONCE ONE Rx#:[id number] Zosyn 3.375 GM In 100 / 100 Dextrose 5% (Minibag+) 100 ML 100 ML @ 25 mls/hr IVPB Q8HR [facility] Rx#: [id number] Oral 0 / 0 Output: Estimated Blood Loss 25 / 25 Urine Amount (Catheter) 200 / 200 Catheter 500 / 500 Other: Weight 100.698 kg Blood Glucose* 133 Patient Weight 08/15/16 23:59 Weight 100.698 kg - General physical appearance well developed, well nourished, no distress, obese - Eyes normal ocular movement - ENT normal mucosa, atraumatic, normocephalic - Neck Neck exam: trachea midline - Respiratory normal respiratory effort, clear to auscultation - Cardiovascular Cardiovascular exam: Present: RRR - Abdomen Abdomen: Present: bowel sounds present, soft, tender (expected post-operative tenderness). Absent: guarding, rebound - Incision Incision: Present: clean and dry, intact - Genitourinary other (Wadsworth to SD with clear, yellow urine (580ml since midnight)) - Integumentary no growths - Neurologic CN 2-12 grossly intact - Musculoskeletal normal posture - Psychiatric oriented to time, oriented to person, oriented to place, speech is normal, memory intact - Labs 08/15/16 05:34 08/15/16 05:34 Short CBC 08/15/16 Range/Units 05:34 WBC 14.9 H (4.3-11.1) K/mcL Hgb 12.1 (11.5-15.4) g/dL Hct 37.2 (35.3-44.9) % Plt Count 331 (140-400) K/mcL Neutrophils # 12.2 H (1.6-8.9) K/mcL BMP 08/15/16 Range/Units 05:34 Sodium 139 (136-145) mEq/L Potassium 4.4 (3.5-4.5) mEq/L Chloride 107 (98-109) mEq/L Carbon Dioxide 23 (19-29) mEq/L BUN 12 (7-20) mg/dL Creatinine 0.90 (0.57-1.11) mg/dL Glucose 131 H (70-99) mg/dL Calcium 8.8 (8.6-10.8) mg/dL Vital Signs Temp Pulse Resp BP Pulse Ox 08/15/16 11:20 97.6 F 66 12 109/73 98 08/15/16 07:30 97.7 F 71 18 104/70 96 08/15/16 03:39 98.0 F 66 15 114/66 96 08/15/16 01:02 81 16 106/66 96 08/15/16 00:02 98.2 F 73 16 107/70 94 08/14/16 23:02 83 18 117/73 95 08/14/16 22:32 82 18 116/79 95 08/14/16 22:02 98.0 F 80 16 107/63 98 08/14/16 21:45 98.0 F 81 20 123/76 99 08/14/16 21:30 92 20 123/69 95 08/14/16 21:20 97.6 F 90 22 123/76 96 08/14/16 21:10 86 24 125/80 96 08/14/16 21:00 88 22 122/85 97 08/14/16 20:50 97.3 F L 88 24 123/96 99 08/14/16 20:40 88 20 123/77 95 08/14/16 20:30 91 22 135/64 91 08/14/16 20:20 97.7 F 97 24 136/80 98 Intake and Output 08/15/16 08/15/16 08/15/16 07:59 15:59 23:59 Intake Total 1100 / 1100 1100 / 1100 408 / 408 Output Total 500 / 500 300 / 300 300 / 300 Balance 600 / 600 800 / 800 108 / 108 Intake: IV Fluids 1100 / 1100 1100 / 1100 408 / 408 0.9 % Sodium Chloride 1, 1000 / 1000 1000 / 1000 355 / 355 000 ML @ 130 mls/hr IVC . Q7H42M [facility] Rx#:[id number] Zosyn 3.375 GM In 100 / 100 100 / 100 53 / 53 Dextrose 5% (Minibag+) 100 ML 100 ML @ 25 mls/hr IVPB Q8H [facility] Rx#: [id number] Oral 0 / 0 Output: Urine 300 / 300 Catheter 500 / 500 300 / 300 Other: Meal NPO breakfast NPO Weight 100.698 kg Blood Glucose* 133 97 Patient Weight 08/15/16 23:59 Weight 100.698 kg - VTE Documentation of Mechanical Device: Intermittent pneumatic compression device Consult Discharge Plan - Plan Referrals: Gentry Sandoval MD [Primary Care Provider] - Mariella Lees MD [Partnered Physician] - 08/30/16 3:50 pm - Attending Attestation I examined this patient and my medical decision-making was reviewed with the CLINICAL SAFETY MANAGER/PA/Advanced Practice Nurse/Resident Physician. I agree with the documented findings, disposition and treatment plan as described except to the extent set forth below. I examined this patient and my medical decision-making was reviewed with the CLINICAL SAFETY MANAGER/PA/Advanced Practice Nurse/Resident Physician. I agree with the documented findings, disposition and treatment plan as described except to the extent set forth below.
[2016-08-15] MEDS: Acetaminophen IV 1,000 MG/100 ML INFUS..BTL IVPB SCH (22:14)
[2016-08-16] MEDS: Acetaminophen IV 1,000 MG/100 ML INFUS..BTL IVPB SCH ×2 (02:13→11:00)
[2016-08-16] MEDS: *HR* HYDROmorphone (PF) 1 MG/ML SYRINGE IVP PRN ×2 (04:01→09:17)
[2016-08-16 05:09] LABS: Basophils # 0.1 K/mcL (0.0-0.2); Basophils % 0.5 %; Eosinophils # 0.2 K/mcL (0.0-0.6); Hematocrit 32.7 % (35.3-44.9); Hemoglobin 10.6 g/dL (11.5-15.4); Immature Granulocytes % 0.6 % (0-4); Lymphocytes # 2.3 K/mcL (0.6-4.6); Lymphocytes % 21.1 %; Mean Corpuscular HGB Conc 32.4 g/dL (31.6-35.5); Mean Corpuscular Volume 89.6 fL (83.0-100.0); Mean Platelet Volume 9.6 fL (9.4-12.4); Monocytes # 1.2 K/mcL (0.0-1.3); Monocytes % 11.2 %; Neutrophils # 7.2 K/mcL (1.6-8.9); Platelet Count 251 K/mcL (140-400); Red Blood Count 3.65 M/mcL (3.82-4.97); Red Cell Distribution Width 13.8 % (11.5-14.5); Segmented Neutrophils % 64.6 %
[2016-08-16 05:26] LABS: BUN/Creatinine Ratio 10 (6-26); Blood Urea Nitrogen 8 mg/dL (7-20); Calcium 8.1 mg/dL (8.6-10.8); Carbon Dioxide 21 mEq/L (19-29); Chloride 109 mEq/L (98-109); Glucose 114 mg/dL (70-99); Osmolality,Calculated 287 (280-300); Potassium 3.5 mEq/L (3.5-4.5); Sodium 139 mEq/L (136-145); eGFR For African Americans > 60 (> 60); eGFR For Non-African Americans > 60 (> 60)
[2016-08-16] MEDS: 0.9 % Sodium Chloride 1,000 ML IVC SCH ×2 (06:03→15:00)
[2016-08-16] MEDS: Piperacillin/Tazobactam 3.375 GM in D5% in Water (Mini-Bag+) 100 ML IVPB SCH ×3 (06:44→23:16)
[2016-08-16] MEDS: Pantoprazole 40 MG VIAL IVP SCH (09:17)
--- NOTE | 2016-08-16 11:17 | General Surgery Progress Note ---
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 Lees Feeling a bit better from yesterday, but still very sore start clears small flatus, bowel sounds, no bm WBC: 14.9>11.1 Afebrile decrease IVF IV antibiotics- Zosyn continue Supportive care/pain control IS every 1 hour while awake Out of bed to chair and ambulate hallways with assistance Repeat am labs (2) DVT prophylaxis Current Visit: Yes Status: Acute EPCDs bilateral lower extremities for DVT prophylaxis Out of bed to chair and ambulate hallways with assistance Subjective Patient reports: feels better, still having pain, pain is less, flatus, no bowel movement, afebrile Narrative: pain better controlled today, passing flatus, no bm no nausea wants a cigarette Objective Vital Signs - Last 8 Hours Temp Pulse Resp BP Pulse Ox 08/16/16 08:18 97.9 F 83 14 125/78 97 08/16/16 04:43 97.9 F 80 14 113/73 96 Intake and Output 08/15/16 08/16/16 08/16/16 23:59 07:59 15:59 Intake Total 1200 / 1200 1160 / 1160 Output Total 300 / 300 1400 / 1400 Balance 900 / 900 -240 / -240 Intake: IV Fluids 1200 / 1200 1100 / 1100 0.9 % Sodium Chloride 1, 1000 / 1000 1000 / 1000 000 ML @ 130 mls/hr IVC . Q7H42M [facility] Rx#:[id number] Ofirmev 1,000 mg In 100 100 / 100 ml @ 400 mls/hr IVPB Q8HR [facility] Rx#:[id number] Zosyn 3.375 GM In 100 / 100 100 / 100 Dextrose 5% (Minibag+) 100 ML 100 ML @ 25 mls/hr IVPB Q8H [facility] Rx#: [id number] Oral 0 / 0 60 / 60 Output: Urine 300 / 300 1400 / 1400 Other: Meal NPO Weight 101.264 kg Blood Glucose* 112 Patient Weight 08/16/16 23:59 Weight 101.264 kg - General physical appearance well developed, no distress, no pain, obese - Eyes PERRL, normal ocular movement - ENT normal mucosa - Respiratory normal expansion, normal respiratory effort - Cardiovascular Cardiovascular exam: Present: RRR - Abdomen Abdomen: Present: bowel sounds present, soft, tender (appropriate post op tenderness) - Incision Incision: Present: clean and dry, intact - Integumentary no rash, no growths - Neurologic CN 2-12 grossly intact - Musculoskeletal normal posture - Psychiatric oriented to time, oriented to person, speech is normal, memory intact - Additional Exam - General physical appearance well developed, well nourished, no distress, obese - Eyes normal ocular movement - ENT normal mucosa, atraumatic, normocephalic - Neck Neck exam: trachea midline - Respiratory normal respiratory effort, clear to auscultation - Cardiovascular Cardiovascular exam: Present: RRR - Abdomen Abdomen: Present: bowel sounds present, soft, tender (expected post-operative tenderness). Absent: guarding, rebound - Incision Incision: Present: clean and dry, intact - Integumentary no growths - Neurologic CN 2-12 grossly intact - Musculoskeletal normal posture - Psychiatric oriented to time, oriented to person, oriented to place, speech is normal, memory intact - Labs 08/16/16 04:51 08/16/16 04:51 Short CBC 08/16/16 Range/Units 04:51 WBC 11.1 (4.3-11.1) K/mcL Hgb 10.6 L D (11.5-15.4) g/dL Hct 32.7 L (35.3-44.9) % Plt Count 251 (140-400) K/mcL Neutrophils # 7.2 (1.6-8.9) K/mcL BMP 08/16/16 Range/Units 04:51 Sodium 139 (136-145) mEq/L Potassium 3.5 (3.5-4.5) mEq/L Chloride 109 (98-109) mEq/L Carbon Dioxide 21 (19-29) mEq/L BUN 8 (7-20) mg/dL Creatinine 0.78 (0.57-1.11) mg/dL Glucose 114 H (70-99) mg/dL Calcium 8.1 L (8.6-10.8) mg/dL Vital Signs Temp Pulse Resp BP Pulse Ox 08/16/16 15:36 98.5 F 83 15 105/71 96 08/16/16 12:11 98.1 F 73 14 105/72 97 08/16/16 08:18 97.9 F 83 14 125/78 97 08/16/16 04:43 97.9 F 80 14 113/73 96 08/16/16 00:33 97.8 F 75 14 112/75 96 08/15/16 19:56 98.5 F 80 14 112/76 97 Intake and Output 08/16/16 08/16/16 08/16/16 07:59 15:59 23:59 Intake Total 1160 / 1160 1680 / 1680 Output Total 1400 / 1400 1600 / 1600 Balance -240 / -240 80 / 80 Intake: IV Fluids 1100 / 1100 1200 / 1200 0.9 % Sodium Chloride 1, 1000 / 1000 1000 / 1000 000 ML @ 130 mls/hr IVC . Q7H42M [facility] Rx#:[id number] Ofirmev 1,000 mg In 100 100 / 100 ml @ 400 mls/hr IVPB Q8HR [facility] Rx#:[id number] Zosyn 3.375 GM In 100 / 100 100 / 100 Dextrose 5% (Minibag+) 100 ML 100 ML @ 25 mls/hr IVPB Q8H [facility] Rx#: [id number] Oral 60 / 60 480 / 480 Output: Urine 1400 / 1400 1600 / 1600 Other: Meal Lunch Weight 101.264 kg Blood Glucose* 112 Patient Weight 08/16/16 23:59 Weight 101.264 kg - VTE Documentation of Mechanical Device: Intermittent pneumatic compression device Consult Discharge Plan - Plan Referrals: Gentry Sandoval MD [Primary Care Provider] - Mariella Lees MD [Partnered Physician] - 08/30/16 3:50 pm
[2016-08-16] MEDS ORDERED: Acetaminophen 325 MG TABLET PO PRN (11:43)
[2016-08-16] MEDS ORDERED: *HR* HYDROmorphone (PF) 1 MG/ML SYRINGE IVP PRN (11:46)
[2016-08-16] MEDS: ALPRAZolam 0.5 MG TABLET PO SCH ×2 (14:52→23:17)
[2016-08-16] MEDS: *HR* OxyCODONE/APAP 5/325 TABLET PO PRN (15:05)
[2016-08-16] MEDS: *HR* Heparin 5,000 UNIT/ML VIAL SQ SCH (18:43)
[2016-08-17] MEDS: *HR* Heparin 5,000 UNIT/ML VIAL SQ SCH ×2 (04:21→17:20)
[2016-08-17] MEDS: *HR* OxyCODONE/APAP 5/325 TABLET PO PRN ×3 (04:25→17:21)
[2016-08-17] MEDS: 0.9 % Sodium Chloride 1,000 ML IVC SCH ×2 (04:28→07:12)
[2016-08-17] MEDS: Piperacillin/Tazobactam 3.375 GM in D5% in Water (Mini-Bag+) 100 ML IVPB SCH (07:27)
[2016-08-17] MEDS: ALPRAZolam 0.5 MG TABLET PO SCH ×2 (07:30→20:29)
--- NOTE | 2016-08-17 13:52 | General Surgery Progress Note ---
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 Current Visit: Yes Status: Acute POD #3 Robotic right colectomy tolerarted clears, start fulls flatus, no bm Afebrile SLIV DC Zosyn Supportive care/pain control IS every 1 hour while awake Out of bed to chair and ambulate hallways with assistance ok shower dc planning (2) DVT prophylaxis Current Visit: Yes Status: Acute EPCDs bilateral lower extremities for DVT prophylaxis Out of bed to chair and ambulate hallways with assistance Subjective Patient reports: feels better, still having pain, pain is less, flatus, no bowel movement, afebrile Objective Vital Signs - Last 8 Hours Temp Pulse Resp BP Pulse Ox 08/17/16 10:41 98.2 F 78 18 120/78 92 08/17/16 08:06 97.4 F L 66 18 124/84 96 Intake and Output 08/16/16 08/17/16 08/17/16 23:59 07:59 15:59 Intake Total 700 / 700 1611 / 1611 1180 / 1180 Output Total 400 / 400 300 / 300 0 / 0 Balance 300 / 300 1311 / 1311 1180 / 1180 Intake: IV Fluids 100 / 100 1371 / 1371 0.9 % Sodium Chloride 1, 1271 / 1271 000 ML @ 80 mls/hr IVC . [id number] [facility] Rx#: [id number] Zosyn 3.375 GM In 100 / 100 100 / 100 Dextrose 5% (Minibag+) 100 ML 100 ML @ 25 mls/hr IVPB Q8H [facility] Rx#: [id number] Oral 600 / 600 240 / 240 1180 / 1180 Output: Urine 400 / 400 300 / 300 0 / 0 Other: Meal Breakfast Percent of Meal Consumed 0% # Voids 1 Weight 101.661 kg Patient Weight 08/17/16 23:59 Weight 101.661 kg - General physical appearance well developed, well nourished, obese - Eyes PERRL, normal ocular movement - ENT normal mucosa, normocephalic - Neck Neck exam: trachea midline - Respiratory normal expansion, clear to auscultation - Cardiovascular Cardiovascular exam: Present: RRR - Abdomen Abdomen: Present: bowel sounds present, soft, tender (appropriate tenderness postop) - Incision Incision: Present: clean and dry, intact - Integumentary no rash, no growths - Neurologic CN 2-12 grossly intact - Musculoskeletal normal posture - Psychiatric oriented to time, oriented to person, oriented to place, speech is normal, memory intact - Labs 08/16/16 04:51 08/16/16 04:51 Vital Signs Temp Pulse Resp BP Pulse Ox 08/17/16 10:41 98.2 F 78 18 120/78 92 08/17/16 08:06 97.4 F L 66 18 124/84 96 08/17/16 04:09 98.2 F 78 15 126/82 94 08/16/16 23:54 98.5 F 84 16 119/76 95 08/16/16 19:22 97.7 F 82 14 121/82 95 08/16/16 15:36 98.5 F 83 15 105/71 96 Intake and Output 08/16/16 08/17/16 08/17/16 23:59 07:59 15:59 Intake Total 700 / 700 1611 / 1611 1180 / 1180 Output Total 400 / 400 300 / 300 0 / 0 Balance 300 / 300 1311 / 1311 1180 / 1180 Intake: IV Fluids 100 / 100 1371 / 1371 0.9 % Sodium Chloride 1, 1271 / 1271 000 ML @ 80 mls/hr IVC . [id number] [facility] Rx#: [id number] Zosyn 3.375 GM In 100 / 100 100 / 100 Dextrose 5% (Minibag+) 100 ML 100 ML @ 25 mls/hr IVPB Q8H [facility] Rx#: [id number] Oral 600 / 600 240 / 240 1180 / 1180 Output: Urine 400 / 400 300 / 300 0 / 0 Other: Meal Breakfast Percent of Meal Consumed 0% # Voids 1 Weight 101.661 kg Patient Weight 08/17/16 23:59 Weight 101.661 kg - VTE Documentation of Mechanical Device: Intermittent pneumatic compression device Consult Discharge Plan - Plan Referrals: Gentry Sandoval MD [Primary Care Provider] - Mariella Lees MD [Partnered Physician] - 08/30/16 3:50 pm
[2016-08-18] MEDS: *HR* OxyCODONE/APAP 5/325 TABLET PO PRN (04:22)
[2016-08-18 04:45] LABS: Basophils # 0.1 K/mcL (0.0-0.2); Basophils % 0.6 %; Eosinophils # 0.5 K/mcL (0.0-0.6); Hematocrit 36.4 % (35.3-44.9); Hemoglobin 12.1 g/dL (11.5-15.4); Immature Granulocytes % 0.6 % (0-4); Lymphocytes # 2.9 K/mcL (0.6-4.6); Lymphocytes % 27.4 %; Mean Corpuscular HGB Conc 33.2 g/dL (31.6-35.5); Mean Corpuscular Hemoglobin 29.1 pg (28.0-33.3); Mean Corpuscular Volume 87.5 fL (83.0-100.0); Mean Platelet Volume 9.7 fL (9.4-12.4); Monocytes # 0.8 K/mcL (0.0-1.3); Monocytes % 7.3 %; Neutrophils # 6.3 K/mcL (1.6-8.9); Platelet Count 348 K/mcL (140-400); Red Blood Count 4.16 M/mcL (3.82-4.97); Red Cell Distribution Width 13.4 % (11.5-14.5); Segmented Neutrophils % 59.1 %
[2016-08-18] MEDS: *HR* Heparin 5,000 UNIT/ML VIAL SQ SCH (06:05)
[2016-08-18] MEDS: ALPRAZolam 0.5 MG TABLET PO SCH (07:43)
[2016-08-18 10:33] VITALS: BP 132/71
--- NOTE | 2016-08-18 11:59 | Discharge Summary ---
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 Priority: Primary Status: Resolved (2) DVT prophylaxis Priority: Secondary Status: Acute - Discharge Medications Prescriptions: OxyCODONE/APAP 5/325 [Percocet 5/325 MG] 1 each PO Q4HR PRN #30 tablet PRN Reason: Moderate Pain Docusate [Colace] 100 mg PO BID #30 capsule Home Medications: Alprazolam [Xanax 0.5 MG Tablet] 0.5 mg PO BID 06/10/16 [History] Escitalopram [Lexapro] 20 mg PO DAILY 06/10/16 [History] Docusate [Colace] 100 mg PO BID #30 capsule 08/18/16 [Rx] OxyCODONE/APAP 5/325 [Percocet 5/325 MG] 1 each PO Q4HR PRN #30 tablet 08/18/16 [Rx] Allergies/Adverse Reactions: Allergies cephalexin [From Keflex] Adverse Reaction (Verified 08/14/16 13:18) Nausea General Surgery Exam Initial Vital Signs Temp Pulse Resp BP Pulse Ox 98.1 F 95 18 129/77 97 08/14/16 12:04 08/14/16 12:04 08/14/16 12:04 08/14/16 12:04 08/14/16 12:04 - General physical appearance well developed, well nourished, no distress - Eyes normal ocular movement - ENT normal mucosa, atraumatic, normocephalic - Neck trachea midline - Respiratory normal expansion, normal respiratory effort, clear to auscultation - Cardiovascular Cardiovascular exam: Present: RRR, 15, 16 - Abdomen Abdomen general surgery: Present: bowel sounds present, soft, tender (minimal, expected post-operative tenderness) - Incision Incision: Present: clean and dry, intact - Integumentary Integumentary general surgery: Present: warm and dry - Neurologic Present: CN 2-12 grossly intact - Musculoskeletal Present: normal gait, normal posture - Psychiatric Psychiatric general surgery: Present: appropriate, oriented to person, oriented to place, oriented to time, speech is normal, memory intact Date of admission: 08/14/16 22:06 Primary care physician: Gentry Sandoval MD Discharging clinician: Mariella Lees ([facility]) Anticipated date of discharge: 08/18/16 - Patient Status Disposition: Home, Self-Care Condition: Good Functional capacity at discharge: independent ambulation Overall status at discharge: patient is progressing back to baseline - Discharge Instructions Follow Up With: Gentry Sandoval MD [Primary Care Provider] - Mariella Lees MD [Partnered Physician] - 08/30/16 3:50 pm Additional Instructions: #1 may shower, no tub bath for 2 weeks #2 wash incisions with soap and water and pat dry daily #3 no lifting, pushing, pulling more than 15 pounds for the next 4 weeks #4 no driving until off narcotics for 24 hours and able to safely react in the car #5 may climb stairs - Diet and Activity Activity: other (See additional instructions above) Diet: other (soft diet for 2 weeks and then advance to regular as tolerated) - Hospital Course Hospital course: Ms. Zafar is a 36 year old female s/p Robotic assisted right colectomy for a history of mucinous neoplasm of the appendix. She has progressed well and is currently tolerating a soft diet without nausea/vomiting. She was maintained on IV antibiotics for 2 days post-operative. D/C yesterday and no increase noted in WBC count. Her vitals are stable and she afebrile. Her pain is well controlled. Voiding and ambulating without difficulty. Will begin discharge planning and plan for outpatient follow-up in the next 10-14 days. - Time Spent with Patient Total time spent providing and/or coordinating discharge services: Less than 30 minutes Labs on day of discharge: Labs from last 24 hours 08/18/16 04:27 WBC 10.6 RBC 4.16 Hgb 12.1 D Hct 36.4 MCV 87.5 MCH 29.1 MCHC 33.2 RDW 13.4 Plt Count 348 MPV 9.7 Immature Gran % 0.6 Seg Neutrophils % 59.1 Lymphocytes % 27.4 Monocytes % 7.3 Eosinophils % 5.0 Basophils % 0.6 Neutrophils # 6.3 Lymphocytes # 2.9 Monocytes # 0.8 Eosinophils # 0.5 Basophils # 0.1 - Attending Attestation I examined this patient and my medical decision-making was reviewed with the AUXILIARY POWER EQUIPMENT OPERATOR/PA/Advanced Practice Nurse/Resident Physician. I agree with the documented findings, disposition and treatment plan as described except to the extent set forth below.
== END 2016-08-18 12:30 | disposition home or self-care (01) | DRG 330 ==
LOC: SAMDAY 11:49 → 3ANU 22:06
PROVIDERS: ADMIT Surgery; ATTEND Surgery